=== PATIENT | male | born 1975 ===

== ENCOUNTER 2017-12-28 06:31 | Day surgery (SDC) | payer OTHER ==
[2017-12-28] MEDS ORDERED: KETO10TA2 PO (09:25)
[2017-12-28] MEDS ORDERED: PERCOCET 5-3251 EACH PO ×2 (09:26→10:46)
[2017-12-28] MEDS ORDERED: RECTICARE30 GM TOP (09:26)
[2017-12-28] MEDS ORDERED: NEURONTIN300 MG PO (10:45)
== END 2017-12-28 11:10 | disposition home or self-care (01) ==
LOC: CIR.AMB 06:31
DX: K60.3 Anal fistula (principal)

== ENCOUNTER 2018-04-24 06:20 | Day surgery (SDC) | payer OTHER ==
[~2018-04-24 06:20] MED LIST: KETO10TA2 PO; NEURONTIN300 MG PO; PERCOCET 5-3251 EACH PO; RECTICARE30 GM TOP; RELPAX40 MG PO; [UNRECOGNIZED DRUG - OTHER] PO
[2018-04-24] MEDS ORDERED: PERCOCET 5-3251 EACH PO (08:32)
[2018-04-24] MEDS ORDERED: NEURONTIN300 MG PO (08:33)
[2018-04-24] MEDS ORDERED: RECTICARE30 GM TOP (08:34)
== END 2018-04-24 12:25 | disposition home or self-care (01) ==
LOC: CIR.AMB 06:20
DX: K60.3 Anal fistula (principal)

== ENCOUNTER 2018-06-28 06:25 | Day surgery (SDC) | payer OTHER ==
[2018-06-28] MEDS ORDERED: VICTOZA IV (07:20)
[2018-06-28] MEDS ORDERED: OXYCONTIN10 M1 PO (10:37)
[2018-06-28] MEDS ORDERED: RECTICARE30 GM TOP (10:38)
[2018-06-28] MEDS ORDERED: KETO10TA2 PO (12:34)
[2018-06-28] MEDS ORDERED: NEURONTIN300 MG PO (12:34)
== END 2018-06-28 11:50 | disposition home or self-care (01) ==
LOC: CIR.AMB 06:25 → AMB-ENDOS 17:01
DX: K60.3 Anal fistula (principal)